=== PATIENT | female | born 1965 ===

== ENCOUNTER 2023-03-20 05:25 | Day surgery (SDC) | payer OTHER ==
[~2023-03-20 05:25] MED LIST: SYNTHROID112 MCG PO; [UNRECOGNIZED DRUG - OTHER] PO; [UNRECOGNIZED DRUG - OTHER] PO
[2023-03-20] MEDS ORDERED: MEFENAMIC ACID250 MG PO (09:57)
== END 2023-03-20 13:45 | disposition home or self-care (01) ==
LOC: CIR.AMB 05:25
PROVIDERS: ATTEND Obstetrics & Gynecology
DX: D25.0 Submucous leiomyoma of uterus (principal); N84.0 Polyp of corpus uteri; N92.1 Excessive and frequent menstruation with irregular cycle; Z20.822 Contact with and (suspected) exposure to COVID-19; Z88.6 Allergy status to analgesic agent